=== PATIENT | male | born 1990 | race Caucasian/White ===

== ENCOUNTER → 2019-04-14 12:38 | Outpatient (CLI) | payer OTHER, MEDICAID, SELFPAY ==
--- NOTE | 2019-04-14 12:41 | DI.RAD.S_ITS ---
PROCEDURE: XR HAND RT MIN 3V INDICATIONS: right hand pain TECHNIQUE: 3 views of the hand(s) acquired. COMPARISON: None. FINDINGS: Bones: No fractures or dislocations. Carpal bones are normally aligned. No suspicious bony lesions. Soft tissues: No suspicious soft tissue calcifications. IMPRESSION: Normal right hand radiograph. Dictated by: Alejandra Bain M.D. on 04/14/2019 at 17:30 Approved by: Alejandra Bain M.D. on 04/14/2019 at 17:30
[2019-04-14 13:11] LABS: Hematocrit 41.5 % (41-53); Hemoglobin 14.3 g/dL (13.5-17.5); Mean Corpuscular HGB Conc 34.5 % (30-36); Mean Corpuscular Hemoglobin 30.7 PG (26-34); Mean Corpuscular Volume 89.1 fL (80-100); Platelet Count 171 X10^3/uL (150-400); Red Blood Cell Count 4.66 X10^6/uL (4.5-5.9); Red Cell Distribution Width 12.5 % (11.6-14.8); White Blood Cell Count 4.4 X10^3/uL (4.5-11.0)
[2019-04-14 14:58] LABS: Alanine Aminotransferase 23 IU/L (21-72); Albumin 4.8 g/dL (3.5-5.0); Albumin Globulin Ratio 1.8 (1.0-2.8); Alkaline Phosphatase 58 U/L (38-126); Aspartate Aminotransferase 32 IU/L (17-59); BUN Creatinine Ratio 23.8 (6-22); Bilirubin Total 1.5 mg/dL (0.2-1.3); Blood Urea Nitrogen 19 mg/dL (9-20); Calcium 9.6 mg/dL (8.4-10.2); Carbon Dioxide 31 mmol/L (22-32); Chloride 97 mmol/L (98-107); Estimated Glomerular Filt Rate > 60.0 mL/min (>60); Globulin 2.7 g/dL (1.7-4.1); Glucose 87 mg/dL (70-100); HEMOLYSIS < 15 (0-50); Potassium 4.6 mmol/L (3.4-5.1); Sodium 136 mmol/L (137-145); Total Protein 7.5 g/dL (6.3-8.2)
[2019-04-14 15:29] LABS: TSH w/ Reflex to FT4 1.91 uIU/mL (0.47-4.68)
[2019-04-14 16:04] LABS: Folate 19.2 ng/mL (2.76-20.0); Vitamin B12 560 pg/mL (239-931)
[2019-04-18 13:47] LABS: Testosterone Free 84.5 pg/mL (35.0-155.0); Testosterone Total 526 ng/dL (250-1100)
== END ==
PROVIDERS: PCP Nurse Practitioner Family; Visit Provider Nurse Practitioner Family
DX: M79.641 Pain in right hand (principal); R53.83 Other fatigue
CPT/HCPCS: 36415; 73130; 80053; 82607; 82746; 84402; 84403; 84443; 85027